=== PATIENT | male | born 1990 | race Two or more races ===

== ENCOUNTER 2016-10-12 14:23 | Emergency (ER) | payer OTHER ==
[~2016-10-12] VITALS: Ht 182.9 cm; Wt 88.5 kg
[~2016-10-12 14:23] MED LIST: DILANTIN100 MG PO
== END 2016-10-12 15:15 | disposition short-term general hospital (02) ==
LOC: ER 14:23
PROC: 2W3JX1Z Immobilization of Right Finger using Splint (ICD-10-PCS; principal; 2016-10-12)
DX: S62.632A Displaced fracture of distal phalanx of right middle finger, initial encounter for closed fracture (principal); W23.0XXA Caught, crushed, jammed, or pinched between moving objects, initial encounter